=== PATIENT | female | born 1945 ===

== ENCOUNTER 2025-01-19 09:45 | Inpatient (IN) | payer OTHER ==
[~2025-01-19] VITALS: Ht 154.9 cm; Wt 78.0 kg
[2025-01-19] MEDS ORDERED: COZAAR100 MG PO (11:29)
[2025-01-19] MEDS ORDERED: SYNTHROID150 MCG PO (11:29)
[2025-01-19] MEDS ORDERED: TOPROL XL100 M1 PO (11:30)
[2025-01-19] MEDS ORDERED: ELIQUIS5 MG PO (11:30)
[2025-01-19] MEDS ORDERED: PROLIA60 MG/1 ML (11:31)
[2025-01-19] MEDS ORDERED: DULOXETINE HCL60 MG PO (11:33)
[2025-01-19] MEDS ORDERED: MYRBETRIQ25 MG PO (11:33)
[2025-01-19 11:34] VITALS: BP 150/73
[2025-01-19 12:50] LABS: BASO % 0.5 % (0.1-1.2); EOS # 0.15 (0.04-0.54); EOS % 2.7 % (0.7-7.0); LYMPH # 1.83 (1.18-3.74); LYMPH % 33.5 % (19.3-53.1); MEAN PLATELET VOLUME 8.80 fl (9.4-12.4); MONO # 0.37 (0.24-0.82); MONO % 6.8 % (4.7-12.5); NEUT # 3.07 (1.56-6.13); NEUT % 56.3 % (34.0-71.1); RED CELL DISTRIBUTION WIDTH 12.3 % (11.6-14.4)
[2025-01-19 13:12] LABS: URINE APPEARANCE Clear; URINE BILIRRUBIN Negative (NEGATIVE); URINE BLOOD Negative; URINE COLOR Yellow; URINE GLUCOSE Negative (NEGATIVE); URINE KETONE Negative (NEGATIVE); URINE LEUKOCYTE Trace; URINE NITRATE Negative; URINE PROTEIN Negative (NEGATIVE); URINE UROBILINOGEN 0.2 E.U./dl
[2025-01-19 13:16] LABS: INR 1.0
[2025-01-19 13:17] LABS: URINE BACTERIA 1859.8 uL (0.0-1933); URINE EPITHELIAL CELLS 4.4 uL (0.0-38.8); URINE WBC 10.1 uL (0.0-23.2)
[2025-01-19 13:29] LABS: URINE CAST 0.00 uL (0.0-1.40); URINE RBC 1.1 uL (0.0-20.8)
[2025-01-19 13:42] LABS: ALT/SGPT 22.0 U/L (12-78); AST/SGOT 23.0 U/L (15-37); BILIRUBIN TOTAL 0.54 mg/dL (0.3-1.2); BUN CREA RATIO 30.0 (7.0-25.0); CHOL HDL RATIO 2.2 (0-5.0); CREATININE SERUM 1.16 mg/dL (0.55-1.02); GFR 44.84; GLOBULINA 3.8 G/DL (2.4-3.5); GLUCOSE FASTING 99.0 mg/dL (65-100); HDL 84.0 mg/dl (40-60); LDL 84.0 mg/dl (0-130); OSMOLALITY SERUM 291.0 MOSM/KG (275-295); VLDL 12.0 (0-39)
[2025-01-27] MEDS ORDERED: TRANEXAMIC ACID 100MG/1ML (1000MG) AMPUL IV ONE (11:00)
[2025-01-27] MEDS ORDERED: CEFAZOLIN SODIUM 1,000 MG VIAL IV ONE (11:00)
[2025-01-27] MEDS ORDERED: LIDOCAINE HCL 1%/EPINEPHRINE 20ML VIAL IJ ONE (11:00)
[2025-01-27] MEDS ORDERED: VANCOMYCIN HCL 1,000 MG VIAL IR ONE (11:00)
[2025-01-27] MEDS ORDERED: ONDANSETRON HCL 2 MG/ML VIAL IV ONE (13:00)
[2025-01-27] MEDS ORDERED: MORPHINE SULFATE 4 MG/ML VIAL IV PRN (14:30)
[2025-01-27] MEDS ORDERED: ONDANSETRON HCL 2 MG/ML VIAL IV PRN (14:30)
[2025-01-27] MEDS ORDERED: OxyCODONE HCL 5 MG TABLET (ROXICODONE) PO PRN (14:30)
[2025-01-27] MEDS ORDERED: SODIUM CHLORIDE 0.45 % 1,000 ML IV SCH (14:30)
[2025-01-27 16:57] VITALS: BP 130/73; O2SAT 95
[2025-01-27] MEDS ORDERED: GABAPENTIN 300 MG CAPSULE PO SCH (17:00)
[2025-01-27] MEDS ORDERED: CEFAZOLIN SODIUM 1,000 MG VIAL IV SCH (17:00)
[2025-01-27] MEDS ORDERED: ACETAMINOPHEN 500 MG GEL..CAP PO SCH (18:00)
[2025-01-27] MEDS ORDERED: ENALAPRILAT DIHYDRATE 1.25 MG/ML VIAL IV PRN (22:30)
[2025-01-28 00:30] VITALS: BP 123/62; O2SAT 98
[2025-01-28] MEDS ORDERED: LEVOTHYROXINE SODIUM 150 MCG TABLET PO SCH (06:00)
[2025-01-28 06:18] LABS: BASO % 0.3 % (0.1-1.2); EOS # 0.01 (0.04-0.54); EOS % 0.1 % (0.7-7.0); LYMPH # 1.42 (1.18-3.74); LYMPH % 19.8 % (19.3-53.1); MEAN PLATELET VOLUME 9.00 fl (9.4-12.4); MONO # 0.78 (0.24-0.82); MONO % 10.9 % (4.7-12.5); NEUT # 4.90 (1.56-6.13); NEUT % 68.5 % (34.0-71.1); RED CELL DISTRIBUTION WIDTH 11.9 % (11.6-14.4)
[2025-01-28] MEDS ORDERED: DUI500 PO (07:42)
[2025-01-28] MEDS ORDERED: ELIQUIS2.5 MG PO (07:42)
[2025-01-28] MEDS ORDERED: PERCOCET 5-3251 EACH PO (07:42)
[2025-01-28] MEDS ORDERED: LOSARTAN POTASSIUM 100 MG TABLET PO SCH (09:00)
[2025-01-28] MEDS ORDERED: SENNOSIDES 1 TAB TABLET PO SCH (09:00)
[2025-01-28] MEDS ORDERED: METOPROLOL SUCCINATE 100 MG TAB.SR.24H PO SCH (09:00)
[2025-01-28] MEDS ORDERED: APIXABAN 2.5 MG TABLET PO SCH (09:00)
[2025-01-28 09:55] VITALS: BP 130/75; O2SAT 90
[2025-01-28 14:03] LABS: COVID-19 AG NEGATIVE (NEGATIVE)
[2025-01-28 16:15] VITALS: BP 122/71; O2SAT 94
[2025-01-29] MEDS ORDERED: IRON FUM,PS/FOLIC ACID/VITC/B3 1 CAP CAPSULE PO SCH (09:00)
== END 2025-01-28 17:00 | DRG 470 ==
LOC: SURH 01-27 07:00 → O/R 01-27 09:00 → SURH 01-27 09:45
PROVIDERS: Orthopaedic Surgery Orthopaedic Surgery of the Spine; ADMIT Orthopaedic Surgery; ATTEND Orthopaedic Surgery
PROC: 0MNP0ZZ Release Left Knee Bursa and Ligament, Open Approach (ICD-10-PCS; 2025-01-27)
PROC: 0QUF0JZ Supplement Left Patella with Synthetic Substitute, Open Approach (ICD-10-PCS; 2025-01-27)
PROC: 0QUF0KZ Supplement Left Patella with Nonautologous Tissue Substitute, Open Approach (ICD-10-PCS; 2025-01-27)
PROC: 0SRD0JZ Replacement of Left Knee Joint with Synthetic Substitute, Open Approach (ICD-10-PCS; principal; 2025-01-27 07:00)
DX: M17.12 Unilateral primary osteoarthritis, left knee (principal); Q87.89 Other specified congenital malformation syndromes, not elsewhere classified; Z96.652 Presence of left artificial knee joint; E07.9 Disorder of thyroid, unspecified; I48.91 Unspecified atrial fibrillation; I10 Essential (primary) hypertension; M81.8 Other osteoporosis without current pathological fracture; L81.8 Other specified disorders of pigmentation; E66.9 Obesity, unspecified; M22.12 Recurrent subluxation of patella, left knee; Z68.24 Body mass index [BMI] 24.0-24.9, adult; E66.813 Obesity, class 3